=== PATIENT | male | born 1980 | race Caucasian/White ===

== ENCOUNTER 2019-06-24 11:07 | Day surgery (SDC) | payer OTHER ==
[2019-06-20 11:01] LABS: ABSOLUTE EOSINOPHILS # (AUTO) 0.1 10^3/uL (0.0-0.6); ABSOLUTE LYMPHOCYTES (AUTO) 2.6 10^3/uL (0.5-4.7); ABSOLUTE MONOCYTES (AUTO) 0.7 10^3/uL (0.1-1.4); ABSOLUTE NEUT (AUTO) 6.4 10^3/uL (1.7-8.2); BASOPHILS % (AUTO) 0.4 % (0-2); HEMATOCRIT 49.2 % (37.9-51.0); HEMOGLOBIN 16.8 g/dL (13.5-17.0); LYMPHOCYTES % (AUTO) 26.7 % (13-45); MEAN CORPUSCULAR HEMOGLOBIN 30.5 pg (27.0-33.4); MEAN CORPUSCULAR HGB CONC 34.2 g/dL (32.0-36.0); MEAN CORPUSCULAR VOLUME 89 fl (80-97); MONOCYTES % (AUTO) 6.9 % (3-13); PLATELET COUNT 189 10^3/uL (150-450); RED BLOOD COUNT 5.51 10^6/uL (4.35-5.55); RED CELL DISTRIBUTION WIDTH 14.1 % (11.5-14.0); TOTAL CELLS COUNTED % (AUTO) 100 %; WHITE BLOOD COUNT 9.8 10^3/uL (4.0-10.5)
[2019-06-20 11:35] LABS: ANION GAP 11 (5-19); BLOOD UREA NITROGEN 12 mg/dL (7-20); CARBON DIOXIDE 26 mmol/L (22-30); CHLORIDE 104 mmol/L (98-107); GLUCOSE 104 mg/dL (75-110); POTASSIUM 3.9 mmol/L (3.6-5.0)
--- NOTE | 2019-06-20 13:18 | EKG REPORT ---
SEVERITY:- BORDERLINE ECG - SINUS RHYTHM PROBABLE LEFT ATRIAL ABNORMALITY : Confirmed by: Trip Mccall MD 20-Jun-2019 13:18:13
[~2019-06-24 11:07] MED LIST: AMPICILLIN SODIUM 2 GM in NORMAL SALINE 100 ML IV PRN; LACTATED RINGERS 1000 ML IV PRN; LIDOCAINE 0.5% INJ-PF (5 MG/ML) 50 ML SDV SUBCUT PRN; SUCCINYLCHOLINE CHLORIDE INJ 200 MG/10 ML VIAL ONE
[2019-06-24] MEDS ORDERED: MIDAZOLAM 2 MG/2 ML INJ ONE ×2 (11:59→12:08)
[2019-06-24] MEDS ORDERED: FENTANYL CITRATE INJ/PF 250 MCG/5 ML AMPULE ONE (11:59)
[2019-06-24] MEDS ORDERED: PROPOFOL INJ 200 MG/20 ML VIAL IV ONE ×2 (11:59→12:48)
[2019-06-24] MEDS ORDERED: ONDANSETRON HCL INJ/PF 4 MG/2 ML SDV ONE (11:59)
[2019-06-24] MEDS ORDERED: DEXAMETHASONE SOD PHOSPHATE INJ 4 MG/1 ML VIAL ONE ×2 (11:59→13:37)
[2019-06-24] MEDS ORDERED: MINERAL OIL (STERILE) 10 ML VIAL ONE (12:02)
[2019-06-24] MEDS ORDERED: COCAINE HCL 4% TOPICAL SOLN 4 ML ONE (12:02)
[2019-06-24] MEDS ORDERED: LIDOCAINE 2%/EPINEPHRINE INJ 1.7 ML CARTRIDGE ONE (12:02)
[2019-06-24] MEDS ORDERED: OXYMETAZOLINE HCL 0.05% NASAL SPRAY 15 ML BOTTLE ONE (12:02)
[2019-06-24] MEDS ORDERED: LIDOCAINE 1%/EPINEPHRINE INJ 20 ML VIAL ONE (12:03)
[2019-06-24] MEDS ORDERED: HYDROCHLOROTHIAZIDE 25 MG TABLET PO ONE (12:30)
[2019-06-24] MEDS ORDERED: RINGERS SOLUTION,LACTATED 1,000 ML IV ONE (12:30)
[2019-06-24] MEDS ORDERED: COCAINE HCL 4% TOPICAL SOLN 4 ML TP ONE (12:54)
[2019-06-24] MEDS ORDERED: LIDOCAINE 2%/EPINEPHRINE INJ 1.7 ML CARTRIDGE INJ ONE (12:56)
[2019-06-24] MEDS ORDERED: DIPHENHYDRAMINE HCL 50 MG/ML VIAL IV PRN (12:56)
[2019-06-24] MEDS ORDERED: MEPERIDINE HCL/PF INJ 25 MG/1 ML DISP.SYRIN IV PRN (12:56)
[2019-06-24] MEDS ORDERED: ONDANSETRON HCL INJ/PF 4 MG/2 ML SDV IV PRN ×2 (12:56→14:05)
[2019-06-24] MEDS ORDERED: PROMETHAZINE HCL INJ 25 MG/1 ML VIAL IV PRN (12:56)
[2019-06-24] MEDS ORDERED: BACITRACIN ZINC OINTMENT 15 GM ONE (13:35)
[2019-06-24] MEDS ORDERED: MORPHINE SULFATE 10 MG/ML INJ IV PRN (14:05)
[2019-06-24] MEDS ORDERED: HYDROCOD/ACETAMIN 7.5-325 MG/15 ML ORAL SOLN UDCUP PO PRN (14:05)
--- NOTE | 2019-06-24 14:13 | Operative Report ---
Operative Report-[facility] Operative Report: Date: 24 June 2019 History: Patient with a history of severe obstructive sleep apnea syndrome with an HI of 105. The patient does have positive airway pressure machine but is not compliant with it. The patient is currently undergoing a weight loss regimen. Patient states he has lost 50 to 75 pounds so far. Presents today for drug induced sleep endoscopy, inferior turbinate reduction, uvulopalatopharyngoplasty and tonsillectomy. Pre-operative diagnosis: 1. Severe obstructive sleep apnea syndrome 2. Inferior turbinate hypertrophy Post operative diagnosis: Same as above Procedure: 1. Uvulopalatopharyngoplasty 2. Tonsillectomy 3. Inferior turbinate reduction, right side 4. Inferior turbinate reduction, left side 5. Drug induced sleep endoscopy [CPT = 00485, modifier 22] Surgeon: Madi Kerns MD, FACS, [facility] Anesthesia: 1. Intravenous sedation using propofol for the drug induced sleep endoscopy 2. General endotracheal intubation Procedure: After receiving informed consent from the patient, he was taken to the operating room placed on the operating table. The first procedure is a drug induced sleep endoscopy. Patient was given the appropriate amount of propofol in which he was still spontaneously breathing but asleep. A flexible nasopharyngolaryngoscopy was placed through the left nares and into the retro- palatal area. The scope was then advanced to the retro-lingual and laryngeal inlet. The findings were as follows: Concentric collapse of soft tissues at the retro-palatal area. Lateral collapse soft tissues at the retro-lingual area. The tongue was not displaced posteriorly. Next the fiberoptic scope was removed and the patient was successfully extubated by anesthesia. Cottonoids saturated with 4% cocaine placed into each nasal cavity for approximately 5 minutes after which time they were withdrawn and the inferior turbinates and nasal septum was infiltrated 2% lidocaine with 100,000 epinephrine. The cottonoids were replaced. Patient was then turned 90 degrees placed in Trendelenburg. A shoulder roll and head drape were then placed. McIvor mouthgag was placed atraumatically into the oral cavity this was then opened up. The patient was then suspended. Soft palate was palpated and found to be normal. Red catheters were inserted down through each nasal cavity and brought out to elevate the soft palate. Tonsil tenaculum used to grasp the right tonsil. Using Bovie electrocautery the right tonsil was removed from the tonsillar fossa. Hemostasis was obtained using suction Bovie cautery. A similar procedure was done on the left side. Next the red catheters were released and removed. The uvula was grasped using a DeBakey forceps and retracted anteriorly. Bovie electrocautery was used to remove the uvula and a portion of the soft palate. Relaxing incisions were made at the superior [place] of the anterior tonsillar pillar laterally. The mucosa was then approximated using 2-0 Vicryl. The oral cavity/oropharynx was then irrigated with normal saline. Orogastric tube inserted into the stomach gastric contents were aspirated. Guidewire mouthgag was then let down reopen no bleeding was noted. This was then removed atraumatically from the patient. Patient was then taken out of Trendelenburg and return to the 0 degree position. Cottonoids were removed from the right nasal cavity. Using the Celon, intramural cauterization was performed on the right inferior turbinate. The inferior turbinate was then medialized and lateralized using a Sayer elevator. Afrin saturated cotton was then placed into this nasal cavity. A similar procedure was done on the left side. The cottonoids will be removed in the recovery room prior to discharge. The patient was then successfully extubated by anesthesia without any complications. Estimated blood loss: 15 mL Fluids: 400 mL The patient was then transported to the Post Anesthesia Care Unit in stable condition with spontaneous respiration. No complication.
[2019-06-24] MEDS ORDERED: HYDRALAZINE HCL INJ/PF 20 MG/1 ML SDV IV PRN (16:27)
[2019-06-24] MEDS: RINGERS SOLUTION,LACTATED 1,000 ML IV PRN (16:31)
[2019-06-24] MEDS: ACETAMINOPHEN SOLN 325 MG/10.15 ML UDCUP PO SCH ×2 (16:32→21:49)
--- NOTE | 2019-06-24 17:07 | PDOC CONSULTATION ---
Consultation Consult Date: 06/24/19 Attending physician:: Dr. marsh Provider Consulted: ALYSE BROWN Consult reason:: High blood pressure History of Present Illness Admission Date/PCP: [facility] History of Present Illness: DARRYL ROJAS is a 39 year old male with history of morbid obesity and severe obstructive sleep apnea syndrome admitted and underwent for you below palatopharyngeal plasty, tonsillectomy, inferior turbinate reduction on right and left side, drug-induced sleep endoscopy had a successful surgery and a medical consult was called for high blood pressures. Past Medical History Cardiac Medical History: Reports: Hypertension Denies: Coronary Artery Disease, Myocardial Infarction Pulmonary Medical History: Reports: Sleep Apnea Denies: Asthma, Bronchitis, Chronic Obstructive Pulmonary Disease (COPD), Pneumonia Neurological Medical History: Denies: Seizures Musculoskeltal Medical History: Denies: Arthritis Skin Medical History: Reports: None Psychiatric Medical History: Reports: None Hematology: Reports: None Denies: Anemia Past Surgical History Past Surgical History: Reports: None Social History Smoking Status: Current Some Day Smoker Electronic Cigarette use?: No Frequency of Alcohol Use: Rare Hx Recreational Drug Use: No Drugs: None - Advance Directive Resuscitation Status: Full Code Family History Parental Family History Reviewed: No Children Family History Reviewed: No - Hypertension Sibling(s) Family History Reviewed.: No Medication/Allergy Home Medications: Ascorbate Calcium [Vitamin C] 500 mg PO DAILY 06/20/19 Hydrochlorothiazide [Hydrodiuril 25 mg Tablet] 25 mg PO DAILY 06/20/19 Lurasidone HCl [Latuda] 20 mg PO BID 06/20/19 Omeprazole 20 mg PO QAM 06/20/19 Topiramate [Topamax] 25 mg PO BID 06/20/19 Zolpidem Tartrate 10 mg PO QHS 06/20/19 Allergies/Adverse Reactions: oxycodone Allergy (Intermediate, Verified 06/24/19 11:50) Pruritis Review of Systems Constitutional: ABSENT: fever(s), headache(s), weakness Eyes: ABSENT: visual disturbances Ears: ABSENT: hearing changes Nose, Mouth, and Throat: PRESENT: sore throat Respiratory: ABSENT: dyspnea, hemoptysis Gastrointestinal: ABSENT: coffee ground emesis, constipation, diarrhea, dysphagia, heartburn Genitourinary: ABSENT: dysuria, hematuria Musculoskeletal: ABSENT: joint swelling Integumentary: ABSENT: rash, wounds Neurological: PRESENT: abnormal movements, dizziness, focal weakness, numbness Psychiatric: ABSENT: anxiety, depression, homidical ideation, suicidal ideation Endocrine: ABSENT: cold intolerance, heat intolerance, polydipsia, polyuria Physical Exam Vital Signs: Temp Pulse Resp BP Pulse Ox 97.7 F 86 16 174/97 H 94 06/24/19 15:45 06/24/19 15:45 06/24/19 15:45 06/24/19 15:45 06/24/19 15:45 Intake & Output 06/23/19 06/24/19 06/25/19 06:59 06:59 06:59 Intake Total 1800 Output Total 25 Balance 1775 Weight 138.35 kg General appearance: PRESENT: mild distress, morbidly obese Head exam: PRESENT: atraumatic Eye exam: PRESENT: PERRLA Mouth exam: PRESENT: moist, tongue midline Teeth exam: PRESENT: poor dentation Neck exam: ABSENT: carotid bruit, JVD, lymphadenopathy, thyromegaly Respiratory exam: PRESENT: clear to auscultation deanna. ABSENT: rales, rhonchi, wheezes Cardiovascular exam: PRESENT: RRR. ABSENT: diastolic murmur, rubs, systolic murmur Pulses: PRESENT: normal dorsalis pedis pul GI/Abdominal exam: PRESENT: normal bowel sounds, soft. ABSENT: distended, guarding, mass, organolmegaly, rebound, tenderness Rectal exam: PRESENT: deferred Extremities exam: PRESENT: full ROM. ABSENT: calf tenderness, clubbing, pedal edema Neurological exam: PRESENT: alert, awake, oriented to person, oriented to place, oriented to time, oriented to situation, CN II-XII grossly intact. ABSENT: motor sensory deficit Psychiatric exam: PRESENT: appropriate affect, normal mood. ABSENT: homicidal ideation, suicidal ideation Results Laboratory Results: 06/20/19 10:07 06/24/19 12:17 06/24/19 12:17 Potassium 4.2 Assessment and Plan - Diagnosis (1) HTN (hypertension) Is this a current diagnosis for this admission?: Yes Plan: 06/24/2019 medical consult was called for management of hypertension. Latest blood pressure is 179/81. Patient is receiving Ringer lactate at 125 cc/h also complains of pain pain scale of 5/10. This may be the contributing factors for elevated blood pressure. To start on hydrochlorothiazide 25 mg p.o. daily and hydralazine 10 mg IV every 6 hours PRN for systolic blood pressure more than 160 and diastolic blood pressure more than 100. Started on heart healthy diet. (2) Morbid obesity Is this a current diagnosis for this admission?: No Plan: 06/24/2019 patient's BMI is more than 41 diet exercise weight loss lifestyle modifications discussed with the patient. (3) Severe obstructive sleep apnea Is this a current diagnosis for this admission?: No Plan: 06/24/2019 patient has history of severe obstructive sleep apnea had uvulopalatopharyngeal plasty, tonsillectomy, inferior tube reduction on the right and left side, drug-induced sleep endoscopy done today. Patient is doing well now. Other management as per Dr. marsh
[2019-06-24] MEDS ORDERED: (PENDING PHARMACY ID) (Lurasidone Hcl [Latuda] 20 MG) PO SCH (18:00)
[2019-06-24] MEDS: LURASIDONE HCL 40 MG TABLET PO SCH (18:40)
[2019-06-24] MEDS: SODIUM CHLORIDE NASAL SPRAY 44 ML NASL SCH ×2 (18:40→21:50)
[2019-06-24] MEDS: TOPIRAMATE 25 MG TABLET PO SCH (18:41)
[2019-06-24] MEDS: DEXAMETHASONE SOD PHOSPHATE INJ 4 MG/1 ML VIAL IV SCH (21:49)
[2019-06-24] MEDS ORDERED: (PENDING PHARMACY ID) (Zolpidem Tartrate [Zolpidem Tartrate] 10 MG) PO SCH (22:00)
[2019-06-24] MEDS ORDERED: ZOLPIDEM TARTRATE 5 MG TABLET PO SCH (22:00)
[2019-06-25] MEDS: ACETAMINOPHEN SOLN 325 MG/10.15 ML UDCUP PO SCH ×4 (04:25→11:31)
[2019-06-25] MEDS ORDERED: PANTOPRAZOLE SODIUM 20 MG TABLET.DR PO SCH (06:00)
[2019-06-25] MEDS: RINGERS SOLUTION,LACTATED 1,000 ML IV PRN (06:01)
[2019-06-25] MEDS: DEXAMETHASONE SOD PHOSPHATE INJ 4 MG/1 ML VIAL IV SCH (06:09)
[2019-06-25 06:33] LABS: ABSOLUTE LYMPHOCYTES (AUTO) 1.6 10^3/uL (0.5-4.7); ABSOLUTE MONOCYTES (AUTO) 0.6 10^3/uL (0.1-1.4); BASOPHILS % (AUTO) 0.1 % (0-2); HEMATOCRIT 48.8 % (37.9-51.0); HEMOGLOBIN 16.5 g/dL (13.5-17.0); LYMPHOCYTES % (AUTO) 9.2 % (13-45); MEAN CORPUSCULAR HEMOGLOBIN 30.2 pg (27.0-33.4); MEAN CORPUSCULAR HGB CONC 33.8 g/dL (32.0-36.0); MEAN CORPUSCULAR VOLUME 89 fl (80-97); MONOCYTES % (AUTO) 3.5 % (3-13); PLATELET COUNT 190 10^3/uL (150-450); RED BLOOD COUNT 5.46 10^6/uL (4.35-5.55); RED CELL DISTRIBUTION WIDTH 14.1 % (11.5-14.0); SEGMENTED NEUTROPHILS % (AUTO) 87.2 % (42-78); TOTAL CELLS COUNTED % (AUTO) 100 %; WHITE BLOOD COUNT 17.2 10^3/uL (4.0-10.5)
[2019-06-25 06:51] LABS: ALBUMIN 4.2 g/dL (3.5-5.0); ALKALINE PHOSPHATASE 87 U/L (38-126); ANION GAP 10 (5-19); ASPARTATE AMINO TRANSFERASE 44 U/L (17-59); BILIRUBIN,DIRECT 0.2 mg/dL (0.0-0.4); BILIRUBIN,TOTAL 0.6 mg/dL (0.2-1.3); BLOOD UREA NITROGEN 17 mg/dL (7-20); CALCIUM 9.5 mg/dL (8.4-10.2); CARBON DIOXIDE 25 mmol/L (22-30); CHLORIDE 104 mmol/L (98-107); CHOLESTEROL 207.29 mg/dL (0-200); GLUCOSE 135 mg/dL (75-110); POTASSIUM 4.3 mmol/L (3.6-5.0); TOTAL PROTEIN 6.8 g/dL (6.3-8.2); TRIGLYCERIDES 60 mg/dL (<150)
[2019-06-25 07:01] LABS: DIRECT LDL 180 mg/dL (<100)
[2019-06-25] MEDS ORDERED: RINGERS SOLUTION,LACTATED 1,000 ML IV PRN (07:50)
[2019-06-25 08:38] VITALS: BP 147/88
[2019-06-25] MEDS: LURASIDONE HCL 40 MG TABLET PO SCH (09:51)
[2019-06-25] MEDS: SODIUM CHLORIDE NASAL SPRAY 44 ML NASL SCH (09:51)
[2019-06-25] MEDS: TOPIRAMATE 25 MG TABLET PO SCH (09:51)
[2019-06-25] MEDS ORDERED: ASCORBIC ACID 500 MG TABLET PO SCH (10:00)
[2019-06-25] MEDS ORDERED: HYDROCHLOROTHIAZIDE 25 MG TABLET PO SCH (10:00)
[2019-06-25] MEDS ORDERED: (PENDING PHARMACY ID) (Ascorbate Calcium [Vitamin C] 500 MG) PO SCH (10:00)
--- NOTE | 2019-06-25 10:33 | PDOC PROGRESS REPORT ---
Subjective Progress Note for:: 06/25/19 Subjective:: 39 year old male with history of morbid obesity and severe obstructive sleep apnea syndrome admitted and underwent for you below palatopharyngeal plasty, tonsillectomy, inferior turbinate reduction on right and left side, drug-induced sleep endoscopy had a successful surgery and a medical consult was called for high blood pressures. 06/25/2019 medical consult was called for high blood pressure latest blood pressure is 144/78. Patient is presently on IV hydralazine 10 mg every 6 hours as needed and also on hydrochlorothiazide 25 mg p.o. daily. No acute events in the last 24 hours. WBC count went up to 17,000 may be because of the postoperative stress. Reason For Visit: SLEEP APNEA Physical Exam Vital Signs: Temp Pulse Resp BP Pulse Ox 98.1 F 79 18 147/88 H 93 06/25/19 08:00 06/25/19 08:00 06/25/19 08:00 06/25/19 08:00 06/25/19 10:13 Pulse Oximeter Continuous Start: 06/24/19 14:16 Freq: RTQ4 Status: Active Protocol: Document 06/25/19 10:13 [facility] (Rec: 06/25/19 10:13 [facility] [id number]) Pulse Oximetry Assessment Oxygen Saturation (92-100) 93 Oxygen Delivery Method Room Air Equipment Usage Equipment Discontinued Continuous SpO2 Machine # 10 Intake & Output 06/24/19 06/25/19 06/26/19 06:59 06:59 06:59 Intake Total 2920 275 Output Total 25 Balance 2895 275 Weight 142.5 kg General appearance: PRESENT: no acute distress, morbidly obese Head exam: PRESENT: atraumatic Eye exam: PRESENT: PERRLA Mouth exam: PRESENT: moist, tongue midline Neck exam: ABSENT: carotid bruit, JVD, lymphadenopathy, thyromegaly Respiratory exam: PRESENT: clear to auscultation deanna. ABSENT: rales, rhonchi, wheezes Pulses: PRESENT: normal dorsalis pedis pul GI/Abdominal exam: PRESENT: normal bowel sounds, soft. ABSENT: distended, guarding, mass, organolmegaly, rebound, tenderness Rectal exam: PRESENT: deferred Extremities exam: PRESENT: full ROM. ABSENT: calf tenderness, clubbing, pedal edema Neurological exam: PRESENT: alert, awake, oriented to person, oriented to place, oriented to time, oriented to situation, CN II-XII grossly intact. ABSENT: motor sensory deficit Psychiatric exam: PRESENT: appropriate affect, normal mood. ABSENT: homicidal ideation, suicidal ideation Results Laboratory Results: 06/25/19 05:31 06/25/19 05:31 06/24/19 06/25/19 06/25/19 12:17 05:31 05:31 WBC 17.2 H RBC 5.46 Hgb 16.5 Hct 48.8 MCV 89 MCH 30.2 MCHC 33.8 RDW 14.1 H Plt Count 190 Seg Neutrophils % 87.2 H Sodium 139.0 Potassium 4.2 4.3 Chloride 104 Carbon Dioxide 25 Anion Gap 10 BUN 17 Creatinine 0.71 Est GFR ( Amer) > 60 Glucose 135 H Calcium 9.5 Magnesium 2.2 Total Bilirubin 0.6 AST 44 Alkaline Phosphatase 87 Total Protein 6.8 Albumin 4.2 Triglycerides 60 Cholesterol 207.29 H LDL Cholesterol Direct 180 H VLDL Cholesterol 12.0 HDL Cholesterol 43 Assessment and Plan - Diagnosis (1) HTN (hypertension) Is this a current diagnosis for this admission?: Yes Plan: 06/24/2019 medical consult was called for management of hypertension. Latest blood pressure is 179/81. Patient is receiving Ringer lactate at 125 cc/h also complains of pain pain scale of 5/10. This may be the contributing factors for elevated blood pressure. To start on hydrochlorothiazide 25 mg p.o. daily and hydralazine 10 mg IV every 6 hours PRN for systolic blood pressure more than 160 and diastolic blood pressure more than 100. Started on heart healthy diet. 06/25/2019 medical consult was called for management of high blood pressure latest blood pressure is 144/88. Patient is presently on hydrochlorothiazide 25 mg p.o. daily and hydralazine 10 mg IV every 6 as needed for systolic blood pressure more than 160. Blood pressure stable at this time. Patient can go home on hydrochlorothiazide and weight loss diet exercise recommended. (2) Morbid obesity Is this a current diagnosis for this admission?: No (3) Severe obstructive sleep apnea Is this a current diagnosis for this admission?: No
--- NOTE | 2019-06-27 08:03 | PDOC DISCHARGE SUMMARY ---
Impression - Admit/DC Date/PCP Admission Date/Primary Care Provider: [facility] Discharge Date: 06/25/19 - Discharge Diagnosis (1) Severe obstructive sleep apnea Is this a current diagnosis for this admission?: No - Assessment Summary: Pt underwent DISE, UPPP and tonsillectomy on 24 June. Refer to operative note for details of the surgery. Pt was admitted to the [facility] and did well. He remained stable with O2 sats above 90% for the entire stay. Will be d/c to home on pain meds. The plan is to perform a post op in 2-3 months. - Additional Information Resuscitation Status: Full Code Discharge Diet: Other (Comments) - soft tonsil diet Discharge Activity: Activity As Tolerated, Other - HOB elevated; avoid strenuous activity. Referrals: MARCO A GALLAGHER MD [ACTIVE STAFF] - 07/27/19 9:00 am Home Medications: Ascorbate Calcium [Vitamin C] 500 mg PO DAILY 06/20/19 Hydrochlorothiazide [Hydrodiuril 25 mg Tablet] 25 mg PO DAILY 06/20/19 Lurasidone HCl [Latuda] 20 mg PO BID 06/20/19 Omeprazole 20 mg PO QAM 06/20/19 Topiramate [Topamax] 25 mg PO BID 06/20/19 Zolpidem Tartrate 10 mg PO QHS 06/20/19 History of Present Illiness History of Present Illness: DARRYL ROJAS is a 39 year old male Physical Exam Vital Signs: Temp Pulse Resp BP Pulse Ox 98.1 F 79 18 147/88 H 93 06/25/19 11:46 06/25/19 11:46 06/25/19 11:46 06/25/19 11:46 06/25/19 11:46 Pulse Oximeter Continuous Start: 06/24/19 14:16 Freq: RTQ4 Status: Discharge Protocol: Document 06/25/19 10:13 [facility] (Rec: 06/25/19 10:13 [facility] [id number]) Pulse Oximetry Assessment Oxygen Saturation (92-100) 93 Oxygen Delivery Method Room Air Equipment Usage Equipment Discontinued Continuous SpO2 Machine # 10 Intake & Output 06/26/19 06/27/19 06/28/19 06:59 06:59 06:59 Intake Total 275 Balance 275 Results Laboratory Results: WBC 17.2 10^3/uL (4.0-10.5) H 06/25/19 05:31 RBC 5.46 10^6/uL (4.35-5.55) 06/25/19 05:31 Hgb 16.5 g/dL (13.5-17.0) 06/25/19 05:31 Hct 48.8 % (37.9-51.0) 06/25/19 05:31 MCV 89 fl (80-97) 06/25/19 05:31 MCH 30.2 pg (27.0-33.4) 06/25/19 05:31 MCHC 33.8 g/dL (32.0-36.0) 06/25/19 05:31 RDW 14.1 % (11.5-14.0) H 06/25/19 05:31 Plt Count 190 10^3/uL (150-450) 06/25/19 05:31 Lymph % (Auto) 9.2 % (13-45) L 06/25/19 05:31 [place]y % (Auto) 3.5 % (3-13) 06/25/19 05:31 Eos % (Auto) 0.0 % (0-6) 06/25/19 05:31 Baso % (Auto) 0.1 % (0-2) 06/25/19 05:31 Absolute Neuts (auto) 15.0 10^3/uL (1.7-8.2) H 06/25/19 05:31 Absolute Lymphs (auto) 1.6 10^3/uL (0.5-4.7) 06/25/19 05:31 Absolute Monos (auto) 0.6 10^3/uL (0.1-1.4) 06/25/19 05:31 Absolute Eos (auto) 0.0 10^3/uL (0.0-0.6) 06/25/19 05:31 Absolute Basos (auto) 0.0 10^3/uL (0.0-0.2) 06/25/19 05:31 Seg Neutrophils % 87.2 % (42-78) H 06/25/19 05:31 Sodium 139.0 mmol/L (137-145) 06/25/19 05:31 Potassium 4.3 mmol/L (3.6-5.0) 06/25/19 05:31 Chloride 104 mmol/L (98-107) 06/25/19 05:31 Carbon Dioxide 25 mmol/L (22-30) 06/25/19 05:31 Anion Gap 10 (5-19) 06/25/19 05:31 BUN 17 mg/dL (7-20) 06/25/19 05:31 Creatinine 0.71 mg/dL (0.52-1.25) 06/25/19 05:31 Est GFR ( Amer) > 60 (>60) 06/25/19 05:31 Est GFR (MDRD) Non-Af > 60 (>60) 06/25/19 05:31 Glucose 135 mg/dL (75-110) H 06/25/19 05:31 Hemoglobin A1c % 6.7 % (4.7-6.0) H 06/25/19 05:31 Calcium 9.5 mg/dL (8.4-10.2) 06/25/19 05:31 Magnesium 2.2 mg/dL (1.6-2.3) 06/25/19 05:31 Total Bilirubin 0.6 mg/dL (0.2-1.3) 06/25/19 05:31 Direct Bilirubin 0.2 mg/dL (0.0-0.4) 06/25/19 05:31 Neonat Total Bilirubin Not Reportable 06/25/19 05:31 Neonat Direct Bilirubin Not Reportable 06/25/19 05:31 Neonat Indirect Bili Not Reportable 06/25/19 05:31 AST 44 U/L (17-59) 06/25/19 05:31 ALT 76 U/L (<50) 06/25/19 05:31 Alkaline Phosphatase 87 U/L (38-126) 06/25/19 05:31 Total Protein 6.8 g/dL (6.3-8.2) 06/25/19 05:31 Albumin 4.2 g/dL (3.5-5.0) 06/25/19 05:31 Triglycerides 60 mg/dL (<150) 06/25/19 05:31 Cholesterol 207.29 mg/dL (0-200) H 06/25/19 05:31 LDL Cholesterol Direct 180 mg/dL (<100) H 06/25/19 05:31 VLDL Cholesterol 12.0 mg/dL (10-31) 06/25/19 05:31 HDL Cholesterol 43 mg/dL (>40) 06/25/19 05:31 Stroke Is this a Stroke Patient?: No Acute Heart Failure - Is this a Heart Failure Patient?: No
== END 2019-06-25 12:00 | disposition home or self-care (01) ==
LOC: OROUT 11:07 → 4S 15:59 → OROUT 06-25 12:00
PROVIDERS: ATTEND Otolaryngology
DX: G47.33 Obstructive sleep apnea (adult) (pediatric) (principal); G47.36 Sleep related hypoventilation in conditions classified elsewhere; G47.61 Periodic limb movement disorder; J34.2 Deviated nasal septum; J34.3 Hypertrophy of nasal turbinates; Z79.899 Other long term (current) drug therapy; I10 Essential (primary) hypertension; F17.210 Nicotine dependence, cigarettes, uncomplicated; E66.01 Morbid (severe) obesity due to excess calories; Z68.41 Body mass index [BMI] 40.0-44.9, adult
CPT/HCPCS: 30802; 42145; 31575; 93005; 36415 ×2; 83735; 84132; 85025 ×2; 80048; 80053; 83036; 80061; 88302 ×2; 88304 ×2; 93010; 94762 ×2; C1713; J0290; J2250; J3490 ×10; J1100 ×2; J3010; J0360; J0330; J2405; J7050; J7120 ×2; J2704